=== PATIENT | male | born 1940 | race Caucasian/White ===

== ENCOUNTER → 2016-09-29 | Outpatient (CLI) | payer MEDICARE ==
[2016-09-29 11:28] LABS: Blood Urea Nitrogen 23 mg/dL (9-20); Non-African American GFR(MDRD) >60 (>60 ml/min/1.73 sqM)
--- NOTE | 2016-09-29 13:15 | CT ---
EXAMINATION TYPE: CT abdomen pelvis w con DATE OF EXAM: 09/29/2016 1:07 PM COMPARISON: NONE HISTORY: Patient has no complaints at time of service. Follow up study for known prostate CA. CT DLP: 1506 mGycm, Automated Exposure Control for Dose Reduction was Utilized. CONTRAST: CT scan of the abdomen and pelvis is performed with oral and with IV Contrast, patient injected with 100 mL of Omnipaque 300. FINDINGS: LUNG BASES: There is partial visualization multi lead pacemaker/AICD. LIVER/GB: No significant abnormality is appreciated. PANCREAS: No significant abnormality is seen. SPLEEN: No significant abnormality is seen. ADRENALS: No significant abnormality is seen. KIDNEYS: There is 1.8 cm simple appearing cyst anteriorly upper pole level right kidney on axial imag e 24 series 7. BOWEL: The oral contrast does not reach the terminal ileum making evaluation of distal bowel suboptim al. There is no suspicious small or large bowel dilatation identified. Normal-appearing appendix is s een from cecum. PROSTATE/SEMINAL VESICLES: Some central zone calcifications in the somewhat prominent prostate gland are identified. Underlying BPH is suspected. Clinical correlation advised. LYMPH NODES: No greater than 1cm abdominal or pelvic lymph nodes are appreciated. OSSEOUS STRUCTURES: There is multilevel spurring in the thoracolumbar spine. Multilevel facet arthrop athy lower lumbar levels is seen. Prominent Schmorl node or mild height loss superior L4 endplate is noted. Fairly moderate joint space loss in both hips is present. No suspicious focal lytic or sclerot ic lesion is seen. OTHER: There is moderate to severe calcified atherosclerotic change of aorta and branch vessels. IMPRESSION: No worrisome mass or adenopathy is seen to suggest metastatic malignancy.
--- NOTE | 2016-09-29 14:47 | NM ---
EXAMINATION TYPE: NM bone scan whole body DATE OF EXAM: 09/29/2016 2:34 PM COMPARISON: Same day CT abdomen and pelvis study. HISTORY: Prostate cancer Delayed whole-body scanning was performed following the injection of 24.4 mCi Tc 99m MDP. Images acq uired 3 hours post injection. Spot images of the thorax abdomen and pelvis are acquired in multiple p rojections. Additional spot images of the bilateral knees ankles and feet are acquired. FINDINGS: There is no suspicious scintigraphic uptake of increased radiotracer uptake to the bone to suggest os seous metastatic disease or other significant bony abnormality. Increase uptake left lateral malleolu s could reflect product of recent trauma. IMPRESSION: No scintigraphic evidence of metastatic disease to the bone.
== END | disposition home or self-care (01) ==
LOC: RADNMMAIN 10:49
PROVIDERS: ATTEND Urology
DX: C61 Malignant neoplasm of prostate (principal)
CPT/HCPCS: 82565; 84520; 74177; 78306; A9503; Q9967

== ENCOUNTER 2024-05-20 15:42 | Emergency (ER) | payer OTHER, MEDICARE ==
[2024-05-20 16:01] VITALS: RESP 16
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
[2024-05-20 16:29] LABS: Appearance,Urine Clear (Clear); Bilirubin,Urine Negative (Negative); Blood,Urine Small (Negative); Color,Urine Light Yellow; Glucose,Urine (UA) 4+ (Negative); Ketones,Urine Negative (Negative); Leukocyte Esterase,Urine Negative (Negative); Mucus,Urine Rare /hpf; Nitrite,Urine Negative (Negative); Protein,Urine Negative (Negative); RBC,Urine 9 /hpf (0-5); Specific Gravity,Urine 1.039 (1.001-1.035); Squamous Epithelial Cell,Urine 1 /hpf (0-4); Urobilinogen,Urine <2.0 mg/dL (<2.0); WBC,Urine 1 /hpf (0-5)
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
[2024-05-20] MEDS: ONDANSETRON 4 MG TAB PO STA (16:36)
[2024-05-20] MEDS: ACETAMINOPHEN TAB 500 MG TAB PO STA (16:37)
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
[2024-05-20] MEDS: IBUPROFEN 800 MG TAB PO STA (16:38)
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
[2024-05-20 17:38] VITALS: PULSE 67
[2024-05-20 17:39] VITALS: BP 110/67
== END 2024-05-20 19:33 | disposition home or self-care (01) ==
LOC: SUPCPDRO 15:42 → EC 15:42
DX: V89.2XXA Person injured in unspecified motor-vehicle accident, traffic, initial encounter
CPT/HCPCS: 70450; 71045; 72125; 72170; 81001; 99284